=== PATIENT | female | born 1990 | race Caucasian/White ===

== ENCOUNTER 2017-04-29 16:02 | Emergency (ER) | payer OTHER ==
[~2017-04-29] VITALS: Ht 162.6 cm; Wt 59.0 kg
[~2017-04-29 16:02] MED LIST: DICY20TA30 PO; ONDA4TAB10 SL
[2017-04-29 17:07] VITALS: BP 133/82
--- NOTE | 2017-04-29 17:16 | PHYS DOC ---
Past Medical History Past Medical History: Other Additional Past Medical Histor: genital herpes, STD hx Past Surgical History: No Surgical History Alcohol Use: Occasionally Drug Use: None Adult General Chief Complaint Chief Complaint: PAIN ON URINATION HPI HPI Patient is a 26 year old female presents to the emergency department with a 7 history of dysuria. She's noted blood in her urine for the last 2 days. Complains of low abdominal pain after urination. She has no fever. No nausea, vomiting. Review of Systems Review of Systems Constitutional: Denies fever or chills [] Eyes: Denies change in visual acuity, redness, or eye pain [] HENT: Denies nasal congestion or sore throat [] Respiratory: Denies cough or shortness of breath [] Cardiovascular: No additional information not addressed in HPI [] GI: Post void abdominal pain, nausea, vomiting, bloody stools or diarrhea [] : Dysuria with hematuria, no vaginal discharge or vaginal bleeding Musculoskeletal: Denies back pain or joint pain [] Integument: Denies rash or skin lesions [] Neurologic: Denies headache, focal weakness or sensory changes [] Endocrine: Denies polyuria or polydipsia [] Allergies Allergies Allergies Coded Allergies Type Severity Reaction Last Updated Verified No Known Drug Allergies 06/24/16 No Physical Exam Physical Exam Constitutional: Well developed, well nourished, no acute distress, non-toxic appearance. [] Neck: Normal range of motion, no tenderness, supple, no stridor. [] Cardiovascular:Heart rate regular rhythm, no murmur [] Lungs & Thorax: Bilateral breath sounds clear to auscultation [] Abdomen: Bowel sounds normal, soft, no tenderness, no masses, no pulsatile masses. [] Skin: Warm, dry, no erythema, no rash. [] Back: No tenderness, no CVA tenderness. [] Extremities: No tenderness, no cyanosis, no clubbing, ROM intact, no edema. [] Neurologic: Alert and oriented X 3, normal motor function, normal sensory function, no focal deficits noted. [] Current Patient Data Vital Signs Vital Signs Date Time Temp Pulse Resp B/P (MAP) Pulse Ox O2 Delivery O2 Flow Rate FiO2 04/29/17 17:07 98.2 91 20 133/82 (99) 100 Room Air 98.2 Lab Values Laboratory Tests Test 04/29/17 16:18 04/29/17 17:05 POC Urine HCG, Qualitative Hcg negative (Negative) Urine Collection Type Unknown Urine Color Yellow Urine Clarity Cloudy Urine pH 7.0 Urine Specific [place] 1.020 Urine Protein 100 mg/dL (NEG-TRACE) Urine Glucose (UA) Negative mg/dL (NEG) Urine Ketones (Stick) Negative mg/dL (NEG) Urine Blood Moderate (NEG) Urine Nitrite Negative (NEG) Urine Bilirubin Negative (NEG) Urine Urobilinogen Dipstick 0.2 mg/dL (0.2 mg/dL) Urine Leukocyte Esterase Large (NEG) Urine RBC Tntc /HPF (0-2) Urine WBC Tntc /HPF (0-4) Urine Squamous Epithelial Cells Few /LPF Urine Bacteria Few /HPF (0-FEW) EKG EKG [] Radiology/Procedures Radiology/Procedures [] Course & Med Decision Making Course & Med Decision Making Pertinent Labs and Imaging studies reviewed. (See chart for details) [] Dragon Disclaimer Dragon Disclaimer This electronic medical record was generated, in whole or in part, using a voice recognition dictation system. Departure Departure Impression: Primary Impression: Urinary tract infection Disposition: HOME, SELF-CARE Condition: STABLE Referrals: UNKNOWN PCP NAME (PCP) [facility] Patient Instructions: Urinary Tract Infection Scripts Phenazopyridine Hcl (PYRIDIUM) 200 Mg Tablet 200 MG PO TID, #6 TAB Prov: RAZ SANCHEZ APRN 04/29/17 Sulfamethoxazole/Trimethoprim (BACTRIM DS TABLET) 1 Each Tablet 1 TAB PO BID, #20 TAB Prov: RAZ SANCHEZ APRN 04/29/17 Problem Qualifiers Primary Impression: Urinary tract infection Urinary tract infection type: acute cystitis Hematuria presence: with hematuria Qualified Codes: N30.01 - Acute cystitis with hematuria RAZ SANCHEZ APRN Apr 29, 2017 17:16
[2017-04-29 17:22] LABS: BILIRUBIN,URINE NEGATIVE (NEG); GLUCOSE,URINE NEGATIVE (NEG); NITRITE,URINE NEGATIVE (NEG); PROTEIN,URINE 100 mg/dL (NEG-TRACE); UROBILINOGEN,URINE 0.2 mg/dL (0.2 mg/dL)
[2017-04-29 17:39] LABS: BACTERIA,URINE FEW /HPF (0-FEW); RBC,URINE TNTC /HPF (0-2); SQUAMOUS EPITHELIAL CELL,UR FEW /LPF; WBC,URINE TNTC /HPF (0-4)
[2017-04-29] MEDS ORDERED: SULF1TAB24 PO (18:01)
[2017-04-29] MEDS ORDERED: PHEN-318 PO (18:01)
== END 2017-04-29 18:22 | disposition home or self-care (01) ==
LOC: ER 16:02
DX: N30.01 Acute cystitis with hematuria (principal)
CPT/HCPCS: 81001; 81025; 87086; 99284

== ENCOUNTER 2017-10-01 16:07 | Emergency (ER) | payer OTHER ==
[2017-10-01 17:00] LABS: BILIRUBIN,URINE NEGATIVE (NEG); CLARITY,URINE TURBID; COLOR,URINE YELLOW; GLUCOSE,URINE NEGATIVE (NEG); NITRITE,URINE NEGATIVE (NEG); PH,URINE 7.5; PROTEIN,URINE NEGATIVE (NEG-TRACE); UROBILINOGEN,URINE 0.2 mg/dL (0.2 mg/dL)
[2017-10-01 17:11] LABS: RBC,URINE 0 /HPF (0-2)
[2017-10-01 17:12] LABS: AMORPHOUS SEDIMENT,UR PRESENT /HPF; BACTERIA,URINE 0 /HPF (0-FEW); SQUAMOUS EPITHELIAL CELL,UR OCC /LPF; WBC,URINE OCC /HPF (0-4)
[2017-10-02 06:51] LABS: URINE HCG POC HCG NEGATIVE (Negative)
== END 2017-10-01 18:18 | disposition home or self-care (01) ==
LOC: ER 16:07
DX: A60.00 Herpesviral infection of urogenital system, unspecified (principal); N39.0 Urinary tract infection, site not specified
CPT/HCPCS: 81001; 81025; 87086; 99284

== ENCOUNTER 2019-02-24 04:50 | Emergency (ER) | payer OTHER, SELFPAY ==
[~2019-02-24] VITALS: Ht 162.6 cm; Wt 62.6 kg
[~2019-02-24 04:50] MED LIST changes: +ACYC200C PO; +DOXY100C14 PO; +METR500T PO; +PHEN-318 PO; +SULF1TAB24 PO
[2019-02-24 05:00] VITALS: BP 112/68
--- NOTE | 2019-02-24 05:30 | PHYS DOC ---
Past Medical History Past Medical History: Other Additional Past Medical Histor: genital herpes, STD hx Past Surgical History: No Surgical History Alcohol Use: Occasionally Drug Use: None Adult General Chief Complaint Chief Complaint: EARACHE/EAR PAIN HPI HPI Patient is a 28 year old f p/w cc of sores in the mouth. has had them on and off usually when she doesnt sleep well pain moderate not improved much with motrin radiates to right ear Allergies Allergies Allergies Coded Allergies Type Severity Reaction Last Updated Verified No Known Drug Allergies 06/24/16 No Physical Exam Physical Exam Constitutional: Well developed, well nourished, no acute distress, non-toxic appearance. [] HENT: scattered canker sores in oropharynx, no airway problem tm clear on affected side. shoddy lymphadenopathy noted Neck: Normal range of motion, no tenderness, supple, no stridor. [] Pulmonary: Normal respiratory effort no increased work of breathing no obvious chest wall trauma Abdomen: Bowel sounds normal, soft, no tenderness, no masses, no pulsatile masses. [] Skin: Warm, dry, no erythema, no rash. [] Back: No tenderness, no CVA tenderness. [] Extremities: No tenderness, no cyanosis, no clubbing, ROM intact, no edema. [] Neurologic: Alert and oriented X 3, normal motor function, normal sensory function, no focal deficits noted. [] Psychologic: Affect normal, judgement normal, mood normal. [] Current Patient Data Vital Signs Vital Signs Date Time Temp Pulse Resp B/P (MAP) Pulse Ox O2 Delivery O2 Flow Rate FiO2 02/24/19 05:00 98.0 64 12 112/68 (83) 100 Room Air 98.0 EKG EKG [] Radiology/Procedures Radiology/Procedures [] Course & Med Decision Making Course & Med Decision Making Pertinent Labs and Imaging studies reviewed. (See chart for details) []straightforward canker sores clinically trial of viscous lidocaine script provided Dragon Disclaimer Dragon Disclaimer This electronic medical record was generated, in whole or in part, using a voice recognition dictation system. Departure Departure Impression: Primary Impression: Canker sore Disposition: 01 HOME, SELF-CARE Condition: STABLE Patient Instructions: Chava Palomino PATRICK MD Feb 24, 2019 05:30
== END 2019-02-24 05:26 | disposition home or self-care (01) ==
LOC: ER 04:50
DX: K12.0 Recurrent oral aphthae (principal)
CPT/HCPCS: 99281; 99282

== ENCOUNTER 2019-09-20 12:04 | Emergency (ER) | payer SELFPAY ==
[~2019-09-20] VITALS: Ht 160 cm; Wt 61.2 kg
[2019-09-20 12:06] VITALS: BP 111/68
[2019-09-20] MEDS ORDERED: NYST100054 PO (12:35)
[2019-09-20] MEDS ORDERED: PRED50TA PO (12:35)
[2019-09-20] MEDS ORDERED: BENZ100C PO (12:41)
--- NOTE | 2019-09-20 12:41 | PHYS DOC ---
Past Medical History Past Medical History: Other Additional Past Medical Histor: genital herpes, STD hx (MUTUNGA,JOANN TIRE TRIMMER HAND) Past Surgical History: No Surgical History (MUTUNGA,JOANN TIRE TRIMMER HAND) Alcohol Use: Occasionally Drug Use: None (MUTUNGA,JOANN TIRE TRIMMER HAND) Adult General Chief Complaint Chief Complaint: SORE THROAT HPI HPI Patient is a 29 year old female who presents with sore throat for 3-4 days with patches on the back of the tongue and cough X 1 days. Denies any fever (MUTUNGA,JOANN TIRE TRIMMER HAND) Review of Systems Review of Systems Constitutional: Denies fever or chills [] Eyes: Denies change in visual acuity, redness, or eye pain [] HENT: Reports sore throat, denies nasal congestion Respiratory: Reports cough, denies shortness of breath [] Cardiovascular: No additional information not addressed in HPI [] GI: Denies abdominal pain, nausea, vomiting, bloody stools or diarrhea [] : Denies dysuria or hematuria [] Musculoskeletal: Denies back pain or joint pain [] Integument: Denies rash or skin lesions [] Neurologic: Denies headache, focal weakness or sensory changes [] All other systems were reviewed and found to be within normal limits, except as documented in this note. (MUTUNGA,JOANN TIRE TRIMMER HAND) Allergies Allergies Allergies Coded Allergies Type Severity Reaction Last Updated Verified No Known Drug Allergies 06/24/16 No (GISELLA SPAULDING DO) Physical Exam Physical Exam Constitutional: Well developed, well nourished, no acute distress, non-toxic appearance. [] HENT: Normocephalic, atraumatic, bilateral external ears normal, oropharynx moist, no oral exudates, nose normal. [] posterior toungue with white plaque no exudate on posterior pharynx. Eyes: PERRLA, EOMI, conjunctiva normal, no discharge. [] Neck: Normal range of motion, no tenderness, supple, no stridor. [] Cardiovascular:Heart rate regular rhythm, no murmur [] Lungs & Thorax: Bilateral breath sounds clear to auscultation [] Abdomen: Bowel sounds normal, soft, no tenderness, no masses, no pulsatile masses. [] Skin: Warm, dry, no erythema, no rash. [] Back: No tenderness, no CVA tenderness. [] Extremities: No tenderness, no cyanosis, no clubbing, ROM intact, no edema. [] Neurologic: Alert and oriented X 3, normal motor function, normal sensory function, no focal deficits noted. [] Psychologic: Affect normal, judgement normal, mood normal. [] (JOANN KHAN APRN) Current Patient Data Vital Signs Vital Signs Date Time Temp Pulse Resp B/P (MAP) Pulse Ox O2 Delivery O2 Flow Rate FiO2 09/20/19 12:06 98.9 77 18 111/68 (82) 98 Room Air 98.9 (SPAULDINGGISELLA BHAKTA DO) EKG EKG [] (JOANN KHAN APRN) Radiology/Procedures Radiology/Procedures [] (JOANN KHAN APRN) Course & Med Decision Making Course & Med Decision Making Pertinent Labs and Imaging studies reviewed. (See chart for details) This is a 29-year-old female patient presenting to the ED today with sore throat and cough. Negative rapid strep. Noted for white patches on tongue consistent with thrush. D/c with nystatin. Follow up with her PCP ijn 1-2 weeks. (JOANN KHAN APRN) Dragon Disclaimer Dragon Disclaimer This electronic medical record was generated, in whole or in part, using a voice recognition dictation system. (JOANN KHAN APRN) Departure Departure Impression: Primary Impression: Pharyngitis, acute Additional Impressions: Cough Thrush Disposition: 01 HOME, SELF-CARE Condition: STABLE Referrals: UNKNOWN PCP NAME (PCP) follow up with your doctor in 1-2 weeks Patient Instructions: Cough, Adult, Thrush, Adult, Viral Pharyngitis Additional Instructions: You have sore thoat-your strep test is negative. We sent prescriptions to your pharmacy for the white patches on your tongue and sore throat. Use it as prescribed. You can also use salt water gurgles. Follow up with your doctor in 1-2 weeks. Scripts Benzonatate (TESSALON PERLE) 100 Mg Capsule 1 CAP PO TID, #21 CAP Prov: JOANN KHAN APRN 09/20/19 Prednisone (PREDNISONE) 50 Mg Tablet 1 TAB PO DAILY, #5 TAB Prov: JOANN KHAN APRN 09/20/19 Nystatin (NYSTATIN) 100,000 Unit/1 Ml Oral.susp 5 ML PO QID, #200 ML Prov: JOANN KHAN TIRE TRIMMER HAND 09/20/19 Attending Signature Attending Signature I have reviewed the PA/SPECIALIZED DEVELOPER's note and plan of care. I was available for consultation as needed during the patient's visit in the emergency department. I agree with the clinical impression, plan, and disposition. (GISELLA SPAULDING DO) Problem Qualifiers Primary Impression: Pharyngitis, acute Pharyngitis/tonsillitis etiology: unspecified etiology Qualified Codes: J02.9 - Acute pharyngitis, unspecified JOANN KHAN [employer] TRIMMER HAND Sep 20, 2019 12:41 GISELLA SPAULDING DO Sep 20, 2019 17:45
== END 2019-09-20 13:00 | disposition home or self-care (01) ==
LOC: ER 12:04
DX: J02.9 Acute pharyngitis, unspecified (principal); R05 Cough; B37.9 Candidiasis, unspecified
CPT/HCPCS: 87070; 87880; 99283